=== PATIENT | male | born 1990 | race African-American/Black ===

== ENCOUNTER 2017-03-28 07:13 | Emergency (ER) | payer OTHER ==
[~2017-03-28] VITALS: Ht 177.8 cm; Wt 83.9 kg
[2017-03-28 10:03] VITALS: BP 122/68
== END 2017-03-28 10:03 | disposition home or self-care (01) ==
LOC: ED 07:13
DX: S43.004A Unspecified dislocation of right shoulder joint, initial encounter (principal); R20.0 Anesthesia of skin; Z98.890 Other specified postprocedural states; X50.0XXA Overexertion from strenuous movement or load, initial encounter; Y93.89 Activity, other specified; Y92.89 Other specified places as the place of occurrence of the external cause; Y99.8 Other external cause status
CPT/HCPCS: J2405; J3010; J3490; Q0092